=== PATIENT | male | born 1960 | race Caucasian/White ===

== ENCOUNTER 2019-01-23 20:59 | Emergency (ER) | payer BC, OTHER ==
[~2019-01-23] VITALS: Ht 172.7 cm; Wt 127.0 kg
[2019-01-23] MEDS ORDERED: CYCL10TA9 PO (21:43)
[2019-01-23] MEDS ORDERED: IBUP-1780 PO (21:43)
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
[2019-01-23 22:01] VITALS: BP 152/85
== END 2019-01-23 22:01 | disposition home or self-care (01) ==
LOC: ER FS 21:01
DX: S13.9XXA Sprain of joints and ligaments of unspecified parts of neck, initial encounter (principal); S29.011A Strain of muscle and tendon of front wall of thorax, initial encounter; V43.52XA Car driver injured in collision with other type car in traffic accident, initial encounter; Y92.411 Interstate highway as the place of occurrence of the external cause
CPT/HCPCS: 99282

== ENCOUNTER → 2021-03-22 | Outpatient (CLI) | payer BC ==
[~2021-03-22] MED LIST: CYCL10TA9 PO; IBUP-1780 PO
== END ==
LOC: LAB FS 10:00
PROVIDERS: ATTEND Orthopaedic Surgery
DX: Z01.812 Encounter for preprocedural laboratory examination (principal); Z20.822 Contact with and (suspected) exposure to COVID-19
CPT/HCPCS: 87635